=== PATIENT | male | born 1985 | race Caucasian/White ===

== ENCOUNTER → 2023-08-16 10:42 | Outpatient (BNVA) | payer BC, SELFPAY | PROVIDERS: Visit Provider Registered Nurse Neonatal Intensive Care | DX: R50.9 Fever, unspecified (principal) | CPT/HCPCS: 87400 ==

== ENCOUNTER 2023-08-17 20:11 | Inpatient (IN) | payer BC, SELFPAY ==
[2023-08-17 20:18] VITALS: BP 128/74; PULSE 105; RESP 16; TEMP 37.3; O2SAT 96; BMI 30.4
[2023-08-17] MEDS: sodium chloride 0.9% 1,000 ML 999 ML IV (20:59)
[2023-08-17] MEDS: ketorolac 30 mg/mL INJ 15 MG IVP (21:01)
[2023-08-17] MEDS: metoclopramide 5 mg/mL SDV 2 mL 10 MG IVP (21:03)
[2023-08-17] MEDS: diphenhydrAMINE 50 mg/mL SDV 1mL 25 MG IVP (21:06)
[2023-08-17 21:18] LABS: Basophils % 0.2 %; Hematocrit 37.7 % (37-53); Lymphocytes # 0.3 10^3/uL (0.8-4.8); Mean Corpuscular HGB Conc 36.1 g/dL (30-55); Mean Corpuscular Hemoglobin 30.2 pg (27-33); Mean Corpuscular Volume 83.8 fl (82-101); Mean Platelet Volume 9.6 fL (7.4-10.4); Monocytes % 7.7 %; Neutrophils # 11.12 10^3/uL (1.8-7.7); Neutrophils % 89.7 %; Nucleated Red Blood Cells % 0 %; Platelet Count 141 10^3/cmm (157-399); Red Cell Distribution Width 12.6 % (12.1-15.1)
--- NOTE | 2023-08-17 21:31 | W.ED.HA ---
HPI - Headache General: Chief Complaint: Headache Stated Complaint: n/v/d , headache, chills, fever Time Seen by Provider: 08/17/23 20:28 Source: patient Mode of arrival: ambulatory Limitations: no limitations History of Present Illness: 37yo male presents with family for evaluation of headache, chills, fever, nausea, vomiting, cough that has been ongoing for the past 4 days. Patient states his symptoms started with a headache and chills, then progressed to vomiting. Reports a Tmax of 102 tympanic and the fever is responsive to Tylenol. Patient reports that his vomiting typically occurs after coughing. He reports that his abdomen feels bloated, but is not having significant pain. Patient states no one at home has been sick. Reports that he has been to urgent care twice in the past 2 days. States initially they told him he had a viral upper respiratory infection with a cough when he tested negative for flu. States today they told him he had a migraine but did prescribe Augmentin. Patient states that he did take 1 tablet, but is not certain if it stay down. Patient also did take 2 activated charcoal tablets but does not technically stay down as well. Patient denies fall, trauma, known injury, known sick contacts, difficulty breathing, shortness of breath, chest pain. Patient does report a past medical history of migraines as a child. Associated symptoms: Reports fever(s) and vomiting; Deny chest pain or rash Review of Systems Const: Reports: fever(s), chills and body aches ENMT: Denies: throat pain Card: Denies: chest pain Resp: Reports: non-productive cough; Denies: dyspnea GI: Reports: vomiting; Denies: abdominal pain : Denies: flank pain or difficulty urinating Musc: Denies: back pain or extremity pain Skin/Breast: Denies: rash Neuro: Reports: headache(s) Physical Exam Const: COMMON NORMALS: no acute distress, patient oriented x3 and alert GENERAL APPEARANCE: cooperative ORIENTATION/CONSCIOUSNESS: Yes awake OTHER: Patient is ambulatory to the exam room unassisted. He is sitting reclined on the stretcher in no acute distress. He is able to make position changes unassisted. Family is at bedside HENMT: COMMON NORMALS: normocephalic and Normal external nose present HEAD & SCALP: normocephalic NOSE: Normal external nose present TYMPANIC MEMBRANE: TM normal on the left and unable to visualize TM (right, cerumen impaction) Eye: COMMON NORMALS: Equal, round and reactive pupils present, EOMs intact bilaterally and conjunctivae normal GENERAL EYE: appearance normal, both eyes and all related structures CONJUNCTIVA: Yes conjunctivae normal PUPIL: Yes Equal, round and reactive pupils present Neck/C-Spine: COMMON NORMALS: full ROM and no meningeal signs Chest: CHEST: Yes Symmetrical chest wall rise Resp: COMMON NORMALS: normal respiratory effort and clear to auscultation bilaterally EFFORT & INSPECTION: Yes able to speak in complete sentences AUSCULTATION: clear to auscultation bilaterally Cardio: COMMON NORMALS: regular rate and regular rhythm RATE: regular rate RHYTHM: regular rhythm GI: COMMON NORMALS: Normal to inspection, nondistended, normoactive bowel sounds present : COMMON NORMALS: Yes no CVA tenderness BLADDER/KIDNEY EXAM: Yes no CVA tenderness Back/Pelvis: COMMON NORMALS: no CVA tenderness Extremity: COMMON NORMALS: full ROM Neuro: COMMON NORMALS: patient oriented x3 SENSORIUM/ORIENTATION: Yes alert MENINGEAL SIGNS: Yes no meningeal signs COORDINATION/BALANCE: [id number] test normal SPEECH: speech normal GAIT: Yes Normal gait present COORDINATION: [id number] test normal Psych: COMMON NORMALS: mental status grossly normal Course Reevaluation(s): Reevaluation #1: Patient reports that he is feeling somewhat better. Discussed with patient and family members concern for ASHWINI given his kidney function, likely secondary to his vomiting. Discussed with patient and family that we would like to admit him to the hospital to ensure that his kidney function does return to normal. Patient and family are agreeable. Will proceed with contacting hospitalist for admission. Time: 22:10 Reevaluation #2: Discussed CT findings, chest x-ray, and UA with significant other. Patient is currently sleeping. Advised that we would proceed with admission. Time: 23:05 Consultations: Consultation #1: Dr Badillo, hospitalist. CT scan, chest x-ray, and UA are back. UA with 2+ bacteria and 25-40 white blood cells, will begin ceftriaxone. GC chlamydia, urine culture, UDS, and EtOH added. Patient is excepted for admission to the hospital. Time: 23:15 Vital Signs: Vital signs: Vital Signs Temperature 99.2 F 08/17/23 20:18 Pulse Rate 77 08/17/23 21:54 Respiratory Rate 16 08/17/23 20:18 Blood Pressure 117/72 08/17/23 22:07 Pulse Oximetry 94 08/17/23 22:07 Oxygen Delivery Me thod Room Air 08/17/23 22:07 MDM - Headache Medical Decision Making 37yo male here with family for evaluation of history of headache, chills, vomiting, fever, and cough. Patient has been seen twice at a local urgent care where he was initially diagnosed with a viral URI, then a migraine and prescribed Augmentin. Patient denies fall, trauma, known injury, known sick contacts, abdominal pain, decreased urine output. Patient is nontoxic in appearance. Vital signs are stable. Previous surgical history of appendectomy. Differential diagnoses include: Viral URI, sinusitis, meningitis, migraine, viral gastritis, bowel obstruction CBC with an elevated white blood cell count of 12.4. CMP with a sodium of 128, BUN of 34, creatinine of 3, GFR 23.5, total bili 1.5, AST 78, ALT 86, alkaline phosphatase 192. Concerning for ASHWINI. Influenza A/B and COVID-19 not detected. Discussed case with ER attending on-call, will call for admission for ASHWINI likely secondary to vomiting from viral illness. Discussed case with , hospitalist. Recommends proceeding with chest x-ray, CT scan, UA prior to admission. CT scan indicates bilateral perinephric changes possibly related to bilateral [place], but more likely related to acute renal failure. Also recommends right upper quadrant ultrasound of the liver. UA with 2+ bacteria, trace leukocytes, and 25-40 white blood cells. Chest x-ray unremarkable. Discussed these findings with Dr. Badillo, new labs added, and patient accepted for admission. Lab Data I reviewed the patient's lab results. 08/17/23 21:10 08/17/23 21:10 Radiology Impressions Abdomen/Pelvis CT 08/17/23 22:16 IMPRESSION: 1. Bilateral perinephric changes suggesting perinephric edema and trace fluid extending along the retroperitoneal reflection. While bilateral pyelonephritis can have this appearance, these findings are likely reported acute renal failure. 2. Nonspecific small pelvic free fluid, possibly related to renal failure. 3. Nonspecific heterogeneity of the hepatic parenchyma. Recommend further evaluation with right upper quadrant ultrasound. 4. Mild splenomegaly. Chest X-Ray 08/17/23 22:16 IMPRESSION: No acute findings. Laboratory Results WBC 12.40 10^3/uL (3.29-11.43) H 08/17/23 21:10 RBC 4.50 10^6/uL (3.85-5.65) 08/17/23 21:10 Hgb 13.60 g/dL (11.27-16.99) 08/17/23 21:10 Hct 37.7 % (37-53) 08/17/23 21:10 MCV 83.8 fl (82-101) 08/17/23 21:10 MCH 30.2 pg (27-33) 08/17/23 21:10 MCHC 36.1 g/dL (30-55) 08/17/23 21:10 RDW 12.6 % (12.1-15.1) 08/17/23 21:10 Plt Count 141 10^3/cmm (157-399) L 08/17/23 21:10 MPV 9.6 fL (7.4-10.4) 08/17/23 21:10 Neut % (Auto) 89.7 % 08/17/23 21:10 Lymph % (Auto) 2.0 % 08/17/23 21:10 [place] % (Auto) 7.7 % 08/17/23 21:10 Eos % (Auto) 0.0 % 08/17/23 21:10 Baso % (Auto) 0.2 % 08/17/23 21:10 Neut # (Auto) 11.12 10^3/uL (1.8-7.7) H 08/17/23 21:10 Lymph # (Auto) 0.3 10^3/uL (0.8-4.8) L 08/17/23 21:10 [place] # (Auto) 1.0 10^3/uL (0.2-0.9) H 08/17/23 21:10 Eos # (Auto) 0.0 10^3/uL (0.0-0.8) 08/17/23 21:10 Baso # (Auto) 0.0 10^3/uL (0.0-0.1) 08/17/23 21:10 Nucleated RBC % (auto) 0 % 08/17/23 21:10 Nucleated RBCs # 0.0 /100WBC 08/17/23 21:10 Sodium 128 mmol/L (136-145) L 08/17/23 21:10 Potassium 3.7 mmol/L (3.5-5.1) 08/17/23 21:10 Chloride 92 mmol/L (98-107) L 08/17/23 21:10 Carbon Dioxide 20 mmol/L (22-29) L 08/17/23 21:10 Anion Gap 19.7 (5-19) H 08/17/23 21:10 BUN 34 mg/dL (6-20) H 08/17/23 21:10 Creatinine 3.0 mg/dL (0.7-1.2) H 08/17/23 21:10 GFR Calculation 23.5 mL/min (90-130) L 08/17/23 21:10 Glucose 147 mg/dL (65-115) H 08/17/23 21:10 Calculated Osmolality 276 mOsm/kg (285-295) L 08/17/23 21:10 Calcium 8.6 mg/dL (8.5-10.5) 08/17/23 21:10 Total Bilirubin 1.5 mg/dL (0.15-1.2) H 08/17/23 21:10 AST 78 U/L (0-40) H 08/17/23 21:10 ALT 86 U/L (0-41) H 08/17/23 21:10 Alkaline Phosphatase 192 U/L (40-130) H 08/17/23 21:10 Total Protein 7.2 g/dL (6.6-8.7) 08/17/23 21:10 Albumin 3.6 g/dL (3.5-5.2) 08/17/23 21:10 Globulin 3.6 g/dL (1.3-4.6) 08/17/23 21:10 Lipase 21 U/L (13-60) 08/17/23 21:10 Urine Color Yellow (Yellow) 08/17/23 22:35 Urine Appearance Sl hazy (CLEAR) A 08/17/23 22:35 Urine pH 5 (5-7) 08/17/23 22:35 Ur Specific [place] 1.015 (1.005-1.030) 08/17/23 22:35 Urine Protein 1+ (Negative) H 08/17/23 22:35 Urine Glucose (UA) Norm (Normal) 08/17/23 22:35 Urine Ketones 1+ (Negative) H 08/17/23 22:35 Urine Blood 2+ (Negative) H 08/17/23 22:35 Urine Nitrate Negative (Negative) 08/17/23 22:35 Urine Bilirubin 1+ (Negative) H 08/17/23 22:35 Urine Urobilinogen 4 mg/dL (Negative) H 08/17/23 22:35 Ur Leukocyte Esterase Trace (Negative) H 08/17/23 22:35 Urine RBC 0-4 /hpf (0-2) H 08/17/23 22:35 Urine WBC 25-40 /hpf (0-5) H 08/17/23 22:35 Ur Squamous Epith Cells 0-4 /hpf (0-5) H 08/17/23 22:35 Amorphous Sediment Trace /hpf 08/17/23 22:35 Urine Bacteria 2+ /hpf (NONE) H 08/17/23 22:35 Hyaline Casts 0-4 /lpf H 08/17/23 22:35 Coarse Granular Casts 5-10 /lpf H 08/17/23 22:35 Influenza Type A Ag negative (Negative) 08/17/23 21:10 Influenza Type B Ag negative (Negative) 08/17/23 21:10 SARS-CoV-2 Ag (Rapid) negative (Negative) 08/17/23 21:10 All radiology interpretation(s) finalized by discharge Discharge Plan Discharge Condition: Stable Prescriptions: No Action amoxicillin-pot clavulanate 875-125 mg tablet 1 tab PO BID 7 Days Qty: 14 0RF Referrals: Brett Whiting [Primary Care Provider] - Coding Level of Care Code ED Rug Sample Beveler for Chg Nickolas
[2023-08-17 21:35] LABS: Alanine Aminotransferase 86 U/L (0-41); Albumin Level 3.6 g/dL (3.5-5.2); Alkaline Phosphatase 192 U/L (40-130); Anion Gap 19.7 (5-19); Aspartate Amino Transferase 78 U/L (0-40); Blood Urea Nitrogen 34 mg/dL (6-20); Calcium 8.6 mg/dL (8.5-10.5); Carbon Dioxide 20 mmol/L (22-29); Chloride 92 mmol/L (98-107); Globulin 3.6 g/dL (1.3-4.6); Glomerular Filtration Rate 23.5 mL/min (90-130); Glucose 147 mg/dL (65-115); Lipase 21 U/L (13-60); Osmolality Calculated 276 mOsm/kg (285-295); Potassium 3.7 mmol/L (3.5-5.1); Sodium 128 mmol/L (136-145); Total Bilirubin 1.5 mg/dL (0.15-1.2); Total Protein 7.2 g/dL (6.6-8.7)
[2023-08-17 21:37] LABS: Influenza A by IFA negative (Negative); Influenza B by IFA negative (Negative); SARS Covid-2 Antigen negative (Negative)
[2023-08-17 21:54] VITALS: BP 123/75; PULSE 77; O2SAT 95
--- NOTE | 2023-08-17 21:59 | PC.NURSE ---
Assumed care of patient from previous nurse Mayra RN @ [id number]. Pt awake in room at this time. Pain has reduced from ivp medications given earlier.
[2023-08-17 22:07] VITALS: BP 117/72; O2SAT 94
--- NOTE | 2023-08-17 22:16 | XRR_ITS ---
PROCEDURE INFORMATION: Exam: XR Chest Exam date and time: 08/17/2023 10:21 PM Age: 37 years old Clinical indication: Cough and fever; Additional info: Cough, fever TECHNIQUE: Imaging protocol: Radiologic exam of the chest. Views: 1 view. COMPARISON: CT Abdomen/[place]vis w IV* [id number] 08/12/2018 1:10 AM FINDINGS: Lungs: Unremarkable. No consolidation. Incidental note is made of a calcified granuloma in the right lateral upper lung zone. Pleural spaces: Unremarkable. No pleural effusion. No pneumothorax. Heart/Mediastinum: Unremarkable. No cardiomegaly. Bones/joints: Unremarkable. XR/XR chest 1V portable [id number] IMPRESSION: No acute findings.
--- NOTE | 2023-08-17 22:16 | CTR_ITS ---
PROCEDURE INFORMATION: Exam: CT Abdomen And Pelvis Without Contrast Exam date and time: 08/17/2023 10:23 PM Age: 37 years old Clinical indication: Vomiting; Prior surgery; Surgery date: 6+ months; Surgery type: Appy 6 years ago; Additional info: Daniel, vomiting TECHNIQUE: Imaging protocol: Computed tomography of the abdomen and pelvis without contrast. Radiation optimization: All CT scans at this facility use at least one of these dose optimization techniques: automated exposure control; mA and/or kV adjustment per patient size (includes targeted exams where dose is matched to clinical indication); or iterative reconstruction. COMPARISON: CT Abdomen/Pelvis w IV* [id number] 08/12/2018 1:10 AM RADIATION DOSE METRICS: Total DLP (mGy-cm): 1026.07 FINDINGS: Lungs: There are mild dependent changes in the posterior lower lobes. Liver: The liver appears heterogeneous in attenuation. While no definitive masses are seen, subtle mass are difficult to exclude in the absence of intravenous contrast. Gallbladder and bile ducts: The gallbladder is contracted. Pancreas: The pancreas is normal. Spleen: The spleen is mildly enlarged measuring up to 13.5 cm. No splenic masses are identified on noncontrast imaging. Adrenal glands: The adrenal glands are normal. Kidneys and ureters: There is hazy increased density in the bilateral perinephric regions which extends inferiorly in the retroperitoneum. No renal calcification or hydronephrosis is seen. There is trace fluid tracking along the retroperitoneal reflections. Stomach and bowel: Unremarkable. No obstruction. No mucosal thickening. Appendix: Postoperative changes are noted in the expected location of the appendix. Intraperitoneal space: There is trace pelvic free fluid. There is trace fluid in the paracolic gutters. No fluid collections are identified. No definitive inflammatory changes are seen. There is no pneumoperitoneum. Retroperitoneal space: Hazy increased density adjacent to the inferior vena cava is likely related to retroperitoneal edema. Vasculature: The aorta is unremarkable. Lymph nodes: Unremarkable. No enlarged lymph nodes. Urinary bladder: Unremarkable as visualized. Reproductive: Unremarkable as visualized. Bones/joints: Unremarkable. No acute fracture. Soft tissues: Unremarkable. CT/CT abdomen pelvis wo con [id number] IMPRESSION: 1. Bilateral perinephric changes suggesting perinephric edema and trace fluid extending along the retroperitoneal reflection. While bilateral pyelonephritis can have this appearance, these findings are likely reported acute renal failure. 2. Nonspecific small pelvic free fluid, possibly related to renal failure. 3. Nonspecific heterogeneity of the hepatic parenchyma. Recommend further evaluation with right upper quadrant ultrasound. 4. Mild splenomegaly.
[2023-08-17 22:58] LABS: Add Urine Microscopic? YES; Bilirubin Urine 1+ (Negative); Blood Urine 2+ (Negative); Glucose Urine UA Norm (Normal); Ketones Urine 1+ (Negative); Leukocyte Esterase Urine Trace (Negative); Nitrate Urine Negative (Negative); Protein Urine 1+ (Negative); Specific Gravity, Urine 1.015 (1.005-1.030); Urine Appearance SL Hazy (CLEAR); Urine Color Yellow (Yellow); Urobilinogen Urine 4 mg/dL (Negative); pH Urine 5 (5-7)
[2023-08-17 22:59] LABS: Bacteria Urine 2+ /hpf; RBC Urine 0-4 /hpf (0-2); Squamous Epithelial Cell Urine 0-4 /hpf (0-5); WBC Urine 25-40 /hpf (0-5)
[2023-08-17 23:00] LABS: Amorphous Sediment Urine TRACE /hpf
[2023-08-17 23:01] LABS: Add Urine Culture? Yes; Hyaline Casts Urine 0-4 /lpf
[2023-08-17 23:20] VITALS: BP 136/89; PULSE 71; O2SAT 94
--- NOTE | 2023-08-17 23:24 | P.HP_ITS ---
Providers/Chief Complaint 2 Primary Care Provider: Brett Whiting Chief Complaint: n/v/d , headache, chills, fever History of Present Illness Tevin Hedrick is a 37 year old male Without known medical comorbidities except for a remote history of migraine type headache as a child. He is currently presenting with complaints of fever chills body ache, diarrhea and sore throat since (today is Thursday). Reports being in his usual state of health until . He then started to develop body ache which was generalized. No predilection for any particular joint. Thereafter he developed nausea vomiting with multiple episodes of emesis a day. Unable to tolerate any p.o. intake. Also had diarrhea with multiple stools a day. States that diarrhea appears to be better when he does not consume any food. Around the same time he also developed a sore throat, minimal cough. No expectoration. His symptoms have continued to persist through today. States that he had a Tmax of 102 Fahrenheit earlier today. He anticipates he has multiple spikes a day but has been taking Tylenol which appears to improve his symptoms. In ER Tmax is noted to be 99.2 Fahrenheit. No other sick contacts at home. Patient is a 4-year-old daughter at home, child has not been sick. No history of strep throat with child. He has both cats and dogs including kittens at home as pets, no history of animal bites or scratches. No noted lymphadenopathy No rashes No joint pain swelling or tenderness He has also been complaining of headache since the onset of his symptoms, much worse than the migraines that he used to suffer before. Denies any photophobia. Denies any neck pain or stiffness. Currently able to have a full range of motion of the neck without issues. Review of Systems 2 General: Reports: 10 or more systems reviewed and unremarkable except in HPI and below Const: Denies: fever(s), chills or body aches Eyes: Denies: change in vision, blurry vision or photophobia ENMT: Reports: hoarseness; Denies: throat pain, enlarged tonsils, odynophagia or nasal congestion Card: Denies: chest pain, palpitations, irregular heart rhythm, edema, swelling of feet/ankles, lightheadedness, pre-syncope, dyspnea on exertion or orthopnea Resp: Denies: dyspnea, productive cough, non-productive cough, wheezing, stridor, pain on inspiration, change in phlegm color, hemoptysis or chest congestion GI: Denies: abdominal pain, nausea, vomiting, hematemesis, coffee ground emesis, dysphagia, heartburn, diarrhea, constipation, GI cramping, change in stool character, hematochezia or melena : Denies: flank pain, dysuria, urinary frequency, urinary urgency, urinary hesitancy or hematuria Musc: Denies: neck pain, back pain, extremity pain, joint swelling, joint warmth or deformity Neuro: Denies: headache(s), numbness in extremities, weakness in extremities, sensory changes, difficulty walking, frequent falls, dizziness, vertigo, behavioral changes, Slurred speech present or seizure-like activity Psych: Denies: anxiety, depression, suicidal ideation or homicidal ideation Endo: Denies: polyuria, polydipsia, tired all the time, cold intolerance or hot flashes [place]/Lymph: Denies: easy bruising or easy bleeding Medications/Allergies Home Medications Medication Instructions Recorded Confirmed Last Taken Type amoxicillin 875 mg-potassium 1 tab PO BID 7 days #14 tabs 08/17/23 08/17/23 Unknown Rx clavulanate 125 mg tablet Allergies Allergy/AdvReac Type Severity Reaction Status Date / Time No Known Allergies Allergy Verified 08/17/23 20:18 Vitals/I&O/Wt Last Vital Signs Temp 99.2 F 08/17/23 20:18 Pulse 71 08/17/23 23:20 Resp 16 08/17/23 20:18 BP 136/89 08/17/23 23:20 Pulse Ox 94 08/17/23 23:20 O2 Del Method Room Air 08/17/23 23:20 08/17/23 08/17/23 08/18/23 14:59 22:59 06:59 Intake Total 1000 / 1000 Balance 1000 / 1000 Weight last 48 hrs Weight 110.677 kg Physical Exam 2 Narrative: General: No acute distress, AO x3 HEENT: PERRLA, pupils bilaterally equal and reactive, pallors not present Chest: Normal vesicular breath sounds, no added sounds, equal good air entry bilaterally CVS: S1-S2 regular, no murmurs, no tachycardia, no gallops, no rubs Abdomen: Soft, nontender, no organomegaly, bowel sounds present Neuro: No focal deficits, no facial deformity, AO x3, power 5/5 in all limbs Data 08/17/23 21:10 08/17/23 21:10 A&P Assessment and plan (1) Fever: Fever source currently under evaluation. Possibilities include acute viral illness, check respiratory viral panel, negative flu and COVID antigens in the emergency room. Check UA, urine culture, urine GC chlamydia, blood culture, chest x-ray and CT of the abdomen and pelvis Given acute kidney injury to assess for any obstructive calculi, given transaminitis to assess for any biliary tree obstruction, given persistent diarrhea evaluate for colitis. Check stool C. difficile PCR, enteric bacterial parasite panel Empiric ceftriaxone 1 g IV every 24 hours to be started after collection of blood cultures while undergoing fever source evaluation. CMV and EBV serologies requested Qualifiers: Fever type: unspecified Qualified Code(s): R50.9 - Fever, unspecified (2) Acute kidney injury: Likely related to dehydration from GI losses. Start normal saline at 100 cc an hour Maintain strict input output charting. Trend creatinine with a.m. labs Check CK to assess for rhabdomyolysis CT abdomen as noted above He received Toradol earlier today and at PCPs office 2 days ago. Avoid any further doses of NSAIDs or other nephrotoxic medications As needed morphine for pain control. (3) Transaminitis: May be related to dehydration IV hydration as noted above CT of the abdomen and pelvis to assess for any biliary tree obstruction. Check hepatitis panel (4) Dehydration: From GI losses related to vomiting and diarrhea Normal saline at 100 cc an hour (5) Hyponatremia: Likely secondary to dehydration, reassess with a.m. labs Plan DVT prophylaxis: Heparin 5000 subcutaneous every 12 hours Full code Attestations 2 Medical Necessity Statement*: Greater than 2 midnight stay is anticipated Coding Level of Care Code Acute Code for Chg Fwd Moderate MDM includes number and complexity of problems actively addressed during encounter, amount and/or complexity of data reviewed/ordered and described risk of complication, morbidity or mortality of management as documented Diagnoses Fever, unspecified fever cause R50.9 Fever type: unspecified Acute kidney injury N17.9 Transaminitis R74.01 Dehydration E86.0 Hyponatremia E87.1
[2023-08-17] MEDS: cefTRIAXone 1,000 MG in sodium chloride 0.9% (plus) 50 ML 100 MG IV (23:36)
[2023-08-17] MEDS: sodium chloride 0.9% 1,000 ML 100 ML IV (23:39)
[2023-08-17 23:42] VITALS: BP 137/92; PULSE 68; RESP 14; TEMP 36.7; O2SAT 95
[2023-08-17 23:50] LABS: Alcohol Level < 10 mg/dL (0-10)
[2023-08-17 23:58] LABS: Amphetamines Screen Urine Negative (Negative); Barbiturates Screen Urine Negative (Negative); Benzodiazepines Screen Urine Negative (Negative); Cocaine Screen Urine Negative (Negative); Opiate Screen Urine Negative (Negative); PCP Screen Urine Negative (Negative); THC Screen Urine Negative (Negative)
[2023-08-18] VITALS (9 sets, daily range): BP systolic 113–123; BP diastolic 66–83; PULSE 61–71; RESP 14–18; TEMP 36.4–36.9; O2SAT 93–97; BMI 30.9
[2023-08-18 00:52] LABS: Glucose Point of Care 136 mg/dL (70-110)
[2023-08-18] MEDS: morphine 4 mg/mL SDV 1 mL 2 MG IVP ×2 (01:17→10:33)
[2023-08-18 04:32] LABS: Adenovirus Not Detected (NOT DETECT); Chlamydia Pneumoniae Not Detected (NOT DETECT); Coronavirus 229E,HKU1,NL63,OC4 Not Detected (NOT DETECT); Human Metapneumovirus Not Detected (NOT DETECT); Human Rhinovirus/Enterovirus Not Detected (NOT DETECT); Influenza A Not Detected (NOT DETECT); Influenza A H1 Not Detected (NOT DETECT); Influenza A H1-2009 Not Detected (NOT DETECT); Influenza A H3 Not Detected (NOT DETECT); Influenza B Not Detected (NOT DETECT); Mycoplasma Pneumoniae Not Detected (NOT DETECT); Parainfluenza Virus Type 1 Not Detected (NOT DETECT); Parainfluenza Virus Type 2 Not Detected (NOT DETECT); Parainfluenza Virus Type 3 Not Detected (NOT DETECT); Parainfluenza Virus Type 4 Not Detected (NOT DETECT); Respiratory Syncytial Virus A Not Detected (NOT DETECT); Respiratory Syncytial Virus B Not Detected (NOT DETECT); SARS-COV-2 Not Detected (NOT DETECT)
[2023-08-18 05:40] LABS: Basophils % 0.1 %; Hematocrit 38.1 % (37-53); Lymphocytes # 0.6 10^3/uL (0.8-4.8); Lymphocytes % 5.8 %; Mean Corpuscular HGB Conc 34.4 g/dL (30-55); Mean Corpuscular Hemoglobin 29.6 pg (27-33); Mean Corpuscular Volume 86.2 fl (82-101); Mean Platelet Volume 9.7 fL (7.4-10.4); Monocytes # 0.6 10^3/uL (0.2-0.9); Monocytes % 5.8 %; Neutrophils # 9.26 10^3/uL (1.8-7.7); Neutrophils % 87.6 %; Nucleated Red Blood Cells % 0 %; Platelet Count 140 10^3/cmm (157-399); Red Blood Count 4.42 10^6/uL (3.85-5.65); Red Cell Distribution Width 12.6 % (12.1-15.1); White Blood Count 10.56 10^3/uL (3.29-11.43)
[2023-08-18 05:49] LABS: Monoscreen Negative (Negative)
[2023-08-18 06:02] LABS: Alanine Aminotransferase 73 U/L (0-41); Albumin Level 3.3 g/dL (3.5-5.2); Alkaline Phosphatase 172 U/L (40-130); Anion Gap 17.2 (5-19); Aspartate Amino Transferase 50 U/L (0-40); Blood Urea Nitrogen 37 mg/dL (6-20); Carbon Dioxide 23 mmol/L (22-29); Chloride 97 mmol/L (98-107); Globulin 3.4 g/dL (1.3-4.6); Glucose 143 mg/dL (65-115); Osmolality Calculated 287 mOsm/kg (285-295); Potassium 4.2 mmol/L (3.5-5.1); Sodium 133 mmol/L (136-145); Total Bilirubin 0.7 mg/dL (0.15-1.2); Total Protein 6.7 g/dL (6.6-8.7)
[2023-08-18 06:11] LABS: Creatine Phosphokinase 100 U/L (39-308)
[2023-08-18 06:25] LABS: Hepatitis A Antibody IgM Non-Reactive (Nonreactive); Hepatitis B Core AB, Total Non-Reactive (Nonreactive); Hepatitis B Surface AB 7.5 (11.5-1000); Hepatitis B Surface Antigen Non-Reactive (Nonreactive); Hepatitis C Virus Antibody Non-Reactive (Nonreactive)
[2023-08-18] MEDS: pantoprazole DR 40 mg Tablet PO (07:58)
[2023-08-18] MEDS: sodium chloride 0.9% 1,000 ML 100 ML IV ×2 (11:23→20:56)
[2023-08-18] MEDS: SUMAtriptan 6 mg/0.5 mL SDV SUBCUT (13:42)
--- NOTE | 2023-08-18 16:16 | P.PN_ITS ---
Subjective 2 Subjective: Earlier in the day, patient complained of headache unresolved w/ morphine. Given his endorsement of hx of migraines, he was given a dose of sumatriptan x 1 w/ resolution of his sympoms. When seen today, the patient stated that he has episodes where he has felt clammy today, but he denies f/c, abd pain, n/v, CP, palpitations, dizziness, light headedness. Vitals/I&O/Wt Last Vital Signs Temp 97.6 F 08/18/23 12:00 Pulse 61 08/18/23 12:00 Resp 16 08/18/23 12:00 BP 114/66 08/18/23 12:00 Pulse Ox 96 08/18/23 12:00 O2 Del Method Room Air 08/18/23 00:21 08/18/23 08/18/23 08/18/23 06:59 14:59 22:59 Intake Total 50 / 1050 1840 / 1840 Balance 50 / 1050 1840 / 1840 Weight last 48 hrs Weight 112.037 kg Weight 112.037 kg Weight 110.677 kg Physical Exam 2 Const: GENERAL APPEARANCE: cooperative, comfortable and well kempt O RIENTATION/CONSCIOUSNESS: Yes awake, Yes oriented to person, Yes oriented to place and Yes oriented to time HENMT: COMMON NORMALS: normocephalic, atraumatic, external ears normal and Normal external nose present HEAD & SCALP: normocephalic and atraumatic N OSE: Normal external nose present EXTERNAL EAR: Yes external ears normal M OUTH: Normal oral and palatal mucosa present THROAT: posterior oropharynx normal Eye: COMMON NORMALS: Equal, round and reactive pupils present PUPIL: Yes Equal, round and reactive pupils present EOM: No EOM abnormal Neck/C-Spine: COMMON NORMALS: Thyroid normal GENERAL: Yes normal visual inspection and Yes trachea midline THYROID: Thyroid normal CAROTIDS: No bruit Lymph: LYMPHATIC: no lymphadenopathy noted Resp: OTHER: CTAB w/ no w/r/r Cardio: OTHER: RRR, no m/r/g/clicks GI: OTHER: BS+, non distended, no rebound, rigidity, or organomegaly Extremity: GENERAL: No clubbing, No cyanosis and No edema Neuro: SENSORIUM/ORIENTATION: Yes oriented to person, Yes oriented to place and Yes oriented to time CRANIAL NERVES: Yes CN normal except as noted S PEECH: speech normal SENSORY EXAM: No sensory level loss detected MOTOR EXAM: 5/5 motor strength present throughout Psych: COMMON NORMALS: Normal thought process present and speech normal A PPEARANCE: Yes grossly normal and Yes well kempt ATTITUDE: Yes calm and Yes engaged ACTIVITY/MOTOR BEHAVIOR: Yes appropriate eye contact SPEECH: Yes normal speech MOOD & AFFECT: Yes euthymic mood THOUGHT PROCESS: Normal thought process present THOUGHT CONTENT: Yes Normal thought content present ATTENTION/CONCENTRATION: Yes attention grossly intact MEMORY/COGNITION: Yes memory grossly intact Skin: COMMON NORMALS: no rashes or lesions noted GENERAL SKIN EXAM: no rashes or lesions noted Data 08/18/23 05:25 08/18/23 05:25 Micro: Microbiology 08/17/23 23:36 Blood Culture - Preliminary Blood SPECIMEN COLLECTED 08/17/23 23:31 Blood Culture - Preliminary Blood SPECIMEN COLLECTED A&P Assessment and plan (1) Acute kidney injury: (2) Hyponatremia: (3) Sepsis: Qualifiers: Acute renal failure type: with acute tubular necrosis Sepsis acute organ dysfunction status: with acute organ dysfunction Sepsis type: sepsis due to unspecified organism Severe sepsis acute organ dysfunction type: acute renal failure Severe sepsis shock status: without septic shock Qualified Code(s): A 41.9 - Sepsis, unspecified organism; R65.20 - Severe sepsis without septic shock; N17.0 - Acute kidney failure with tubular necrosis (4) Transaminitis: (5) Dehydration: Plan #Severe Sepsis: Due to UTI and possible Acute b/l pyelonephritis #Complicated UTI w/ #possible Acute b/l pyelonephritis. - F/u BCx. F/u UCx. Continue Ceftriaxone. #ASHWINI with Acute Tubular necrosis (ATN): #Dehydration #Hypovolemic Hyponatremia - Continue IVF. Monitor Na+ levels. - Monitor renal function. Strict Is &Os. #Transaminitis: - possibly due to dehydration. - F/u RUQ as recommended by Radiologist. - Monitor LFTs. #Fever: F/u CMV serology. F/u chlamydia/gonorrhea studies. Respiratory viral panel studies including COVID-19 studies and Acute hepatitis panel is negative. EBV screen is negative. #Headache, Hx of Migraine type headache as a child. - S/p Sumatriptan subq x 1 on 08/18 w/ resolution of symptoms DVT ppx: heparin subq. Attestations 2 Medical Necessity Statement*: Pending BCx, UCx, ATN improvement and transaminitis improvement Coding Level of Care Code 25790 Diagnoses Acute kidney injury N17.9 Hyponatremia E87.1 Sepsis with acute renal failure and tubular necrosis without septic shock, due to unspecified organism A41.9; R65.20; N17.0 Acute renal failure type: with acute tubular necrosis Sepsis acute organ dysfunction status: with acute organ dysfunction Sepsis type: sepsis due to unspecified organism Severe sepsis acute organ dysfunction type: acute renal failure Severe sepsis shock status: without septic shock Transaminitis R74.01 Dehydration E86.0
--- NOTE | 2023-08-18 16:20 | US_ITS ---
WS: [id number] RIGHT UPPER QUADRANT ULTRASOUND HISTORY: Transaminitis. Recommended by Radiologist. COMPARISON: CT 08/17/2023 Liver: 15.8 cm in length. Liver is top normal size. Coarse echotexture throughout. No mass identified . No bile duct dilatation. Portal Vein: Normal hepatopetal flow with monophasic waveform. Gallbladder: Normally distended gallbladder with no stones or wall thickening. CBD: 0.5 cm Pancreas: Poorly visualized pancreas due to body habitus. Right kidney: 12.8 cm in length. Normal size and echogenicity. No hydronephrosis or mass. Aorta and IVC: Unremarkable abdominal aorta and IVC. No ascites. IMPRESSION: 1. Normal gallbladder. 2. Technically difficult evaluation RIGHT upper quadrant. 3. Mild hepatic steatosis. No mass or bile duct dilatation.
[2023-08-18] MEDS: cefTRIAXone 2,000 MG in sodium chloride 0.9% (plus) 50 ML 100 MG IV (23:31)
[2023-08-19] VITALS (7 sets, daily range): BP systolic 102–137; BP diastolic 58–83; PULSE 54–63; RESP 16–18; TEMP 35.9–36.8; O2SAT 95–97
[2023-08-19] MEDS: sodium chloride 0.9% 1,000 ML 100 ML IV ×2 (06:00→17:01)
[2023-08-19] MEDS: morphine 4 mg/mL SDV 1 mL 2 MG IVP (06:31)
[2023-08-19] MEDS: pantoprazole DR 40 mg Tablet PO (08:00)
[2023-08-19] MEDS: SUMAtriptan 6 mg/0.5 mL SDV SUBCUT (10:27)
--- NOTE | 2023-08-19 11:16 | P.PN_ITS ---
Subjective 2 Subjective: Earlier in the day, patient complained of bifrontal/and parietal headache that comes in waves. Associated w/ some light and sound sensitivity. He denies any nausea, or emesis. He states that the light and sound sensitivity that he felt today is much less compared to prior to admission. He also states that prior to admission, he also felt like he had visual disturbances with his headaches. He denies any sensation of nausea, or emesis. He was given a dose of sumatriptan this morning, with resolution of his headache. He continues to deny any fever or chills, dizziness lightheadedness, abdominal pain, CP, palpitations, dysuria, hematuria, increased urinary urgency or frequency. Medications: Reviewed: Yes Vitals/I&O/Wt Last Vital Signs Temp 97.6 F 08/19/23 10:55 Pulse 56 L 08/19/23 10:55 Resp 16 08/19/23 10:55 BP 133/83 08/19/23 10:55 Pulse Ox 97 08/19/23 10:55 O2 Del Method Room Air 08/19/23 10:55 08/18/23 08/19/23 08/19/23 22:59 06:59 14:59 Intake Total 1195 / 3035 956.667 / 3991.667 480 / 480 Balance 1195 / 3035 956.667 / 3991.667 480 / 480 Weight last 48 hrs Weight 111.947 kg Weight 112.037 kg Weight 112.037 kg Weight 110.677 kg Physical Exam 2 Const: GENERAL APPEARANCE: cooperative, comfortable and well kempt O RIENTATION/CONSCIOUSNESS: Yes awake, Yes oriented to person, Yes oriented to place and Yes oriented to time HENMT: COMMON NORMALS: normocephalic, atraumatic, external ears normal and Normal external nose present HEAD & SCALP: normocephalic and atraumatic N OSE: Normal external nose present EXTERNAL EAR: Yes external ears normal M OUTH: Normal oral and palatal mucosa present THROAT: posterior oropharynx normal Eye: COMMON NORMALS: Equal, round and reactive pupils present PUPIL: Yes Equal, round and reactive pupils present EOM: No EOM abnormal Neck/C-Spine: COMMON NORMALS: Thyroid normal GENERAL: Yes normal visual inspection and Yes trachea midline THYROID: Thyroid normal CAROTIDS: No bruit Lymph: LYMPHATIC: no lymphadenopathy noted Resp: OTHER: CTAB w/ no w/r/r Cardio: OTHER: RRR, no m/r/g/clicks GI: OTHER: BS+, non distended, no rebound, rigidity, or organomegaly Extremity: GENERAL: No clubbing, No cyanosis and No edema Neuro: SENSORIUM/ORIENTATION: Yes oriented to person, Yes oriented to place and Yes oriented to time CRANIAL NERVES: Yes CN normal except as noted S PEECH: speech normal SENSORY EXAM: No sensory level loss detected MOTOR EXAM: 5/5 motor strength present throughout Psych: COMMON NORMALS: Normal thought process present and speech normal A PPEARANCE: Yes grossly normal and Yes well kempt ATTITUDE: Yes calm and Yes engaged ACTIVITY/MOTOR BEHAVIOR: Yes appropriate eye contact SPEECH: Yes normal speech MOOD & AFFECT: Yes euthymic mood THOUGHT PROCESS: Normal thought process present THOUGHT CONTENT: Yes Normal thought content present ATTENTION/CONCENTRATION: Yes attention grossly intact MEMORY/COGNITION: Yes memory grossly intact Skin: COMMON NORMALS: no rashes or lesions noted GENERAL SKIN EXAM: no rashes or lesions noted Data 08/18/23 05:25 08/18/23 05:25 Micro: Microbiology 08/17/23 23:36 Blood Culture - Preliminary Blood NEGATIVE TO DATE 08/17/23 23:31 Blood Culture - Preliminary Blood NEGATIVE TO DATE A&P Assessment and plan (1) Acute kidney injury: (2) Hyponatremia: (3) Sepsis: Qualifiers: Sepsis type: sepsis due to unspecified organism Sepsis acute organ dysfunction status: with acute organ dysfunction Severe sepsis acute organ dysfunction type: acute renal failure Acute renal failure type: with acute tubular necrosis Severe sepsis shock status: without septic shock Qualified Code(s): A41.9 - Sepsis, unspecified organism; R65.20 - Severe sepsis without septic shock; N17.0 - Acute kidney failure with tubular necrosis (4) Transaminitis: (5) Dehydration: Plan Mr. Hedrick is a 37yo man w/ no medical condition except a remote history of a migraine type headache as a child, who presented to the ED on 08/17/2023 with fever chills, myalgias, diarrhea, sore throat, and multiple episodes of emesis daily since 08/13/2023. In the ED, his Tmax was 99.2 F, but he was tachycardic to 105bpm. He had a wbc of 12.4, as well as Hyponatremia of 128, a Cr of 3.0 (baseline 1.0 on 08/12/2018), and transaminitis. His UA was concerning for UTI. His CXR showed no acute abnormalities. A CT abd/pelvis w/o contrast was done that was concerning for bilateral acute pyelonephritis. There was nonspecific heterogeneity of the hepatic parenchyma, so a RUQ US was recommended. On admission, he was started on Ceftriaxone. The RUQ was done and it showed mild hepatic steatosis. #Severe Sepsis: Due to UTI and Acute b/l pyelonephritis #Complicated UTI w/ #possible Acute b/l pyelonephritis. - F/u BCx. F/u UCx. Continue Ceftriaxone. #ASHWINI with Acute Tubular necrosis (ATN): #Dehydration #Hypovolemic Hyponatremia - Continue IVF. Monitor Na+ levels. - Monitor renal function. Strict Is &Os. #Transaminitis: - possibly due to dehydration. - Monitor LFTs. #Mild Hepatic steatosis - F/u lipid panel #Fever: F/u CMV serology. F/u chlamydia/gonorrhea studies. Respiratory viral panel studies including COVID-19 studies and Acute hepatitis panel is negative. EBV screen is negative. #Headache w/ Possible Migraine, Hx of Migraine type headache as a child. - S/p Sumatriptan sub daily x 2 days. Switch to po sumatriptan prn. DVT ppx: heparin subq. Attestations 2 Medical Necessity Statement*: He remains hospitalized because UCx, BCx are still pending. Coding Level of Care Code 95756 Diagnoses Acute kidney injury N17.9 Hyponatremia E87.1 Sepsis with acute renal failure and tubular necrosis without septic shock, due to unspecified organism A41.9; R65.20; N17.0 Sepsis type: sepsis due to unspecified organism Sepsis acute organ dysfunction status: with acute organ dysfunction Severe sepsis acute organ dysfunction type: acute renal failure Acute renal failure type: with acute tubular necrosis Severe sepsis shock status: without septic shock Transaminitis R74.01 Dehydration E86.0
[2023-08-19 11:30] LABS: EBV IGM TEST <36.00 U/mL
[2023-08-19 12:30] LABS: Cytomegalovirus Antibody (IGG) <0.60 U/mL; Cytomegalovirus Antibody (IGM) <30.00 AU/mL
[2023-08-19 12:30] LABS: Basophils % 0.2 %; Eosinophils % 0.5 %; Hematocrit 38.1 % (37-53); Lymphocytes # 1.3 10^3/uL (0.8-4.8); Lymphocytes % 20.8 %; Mean Corpuscular HGB Conc 34.6 g/dL (30-55); Mean Corpuscular Hemoglobin 29.5 pg (27-33); Mean Platelet Volume 9.8 fL (7.4-10.4); Monocytes # 0.5 10^3/uL (0.2-0.9); Neutrophils # 4.42 10^3/uL (1.8-7.7); Neutrophils % 69.4 %; Nucleated Red Blood Cells % 0 %; Platelet Count 209 10^3/cmm (157-399); Red Blood Count 4.48 10^6/uL (3.85-5.65); White Blood Count 6.36 10^3/uL (3.29-11.43)
[2023-08-19 12:49] LABS: Alanine Aminotransferase 88 U/L (0-41); Albumin Level 3.3 g/dL (3.5-5.2); Alkaline Phosphatase 142 U/L (40-130); Anion Gap 11.5 (5-19); Aspartate Amino Transferase 59 U/L (0-40); Blood Urea Nitrogen 29 mg/dL (6-20); Calcium 8.2 mg/dL (8.5-10.5); Carbon Dioxide 24 mmol/L (22-29); Chloride 106 mmol/L (98-107); Globulin 2.8 g/dL (1.3-4.6); Glomerular Filtration Rate 61.8 mL/min (90-130); Glucose 109 mg/dL (65-115); Osmolality Calculated 292 mOsm/kg (285-295); Potassium 3.5 mmol/L (3.5-5.1); Sodium 138 mmol/L (136-145); Total Bilirubin 0.4 mg/dL (0.15-1.2); Total Protein 6.1 g/dL (6.6-8.7)
[2023-08-19 18:04] LABS: Chlamydia Trachomatis RNA TMA NOT DETECTED (NOT DETECTED); Neisseria Gonorrhoeae RNA, TMA NOT DETECTED (NOT DETECTED)
[2023-08-19] MEDS: SUMAtriptan 25 mg Tablet PO (18:19)
[2023-08-19] MEDS: cefTRIAXone 2,000 MG in sodium chloride 0.9% (plus) 50 ML 100 MG IV (23:43)
[2023-08-20] VITALS: BP 134/78; PULSE 60; RESP 18; TEMP 36.4; O2SAT 95
[2023-08-20] MEDS: sodium chloride 0.9% 1,000 ML 100 ML IV (01:53)
[2023-08-20 04:00] VITALS: BP 115/73; PULSE 61; RESP 17; TEMP 36.4; O2SAT 97
[2023-08-20 05:55] LABS: Basophils % 0.8 %; Hematocrit 38.7 % (37-53); Lymphocytes # 1.5 10^3/uL (0.8-4.8); Lymphocytes % 38.6 %; Mean Corpuscular HGB Conc 33.6 g/dL (30-55); Mean Corpuscular Hemoglobin 29.2 pg (27-33); Mean Platelet Volume 9.1 fL (7.4-10.4); Monocytes # 0.5 10^3/uL (0.2-0.9); Monocytes % 11.4 %; Neutrophils # 1.81 10^3/uL (1.8-7.7); Neutrophils % 45.9 %; Nucleated Red Blood Cells % 0 %; Platelet Count 226 10^3/cmm (157-399); Red Blood Count 4.45 10^6/uL (3.85-5.65); White Blood Count 3.94 10^3/uL (3.29-11.43)
[2023-08-20 06:00] VITALS: BMI 30.7
[2023-08-20 06:14] LABS: Alanine Aminotransferase 106 U/L (0-41); Albumin Level 3.1 g/dL (3.5-5.2); Alkaline Phosphatase 109 U/L (40-130); Anion Gap 14.3 (5-19); Blood Urea Nitrogen 21 mg/dL (6-20); Calcium 8.4 mg/dL (8.5-10.5); Carbon Dioxide 25 mmol/L (22-29); Chloride 106 mmol/L (98-107); Globulin 2.9 g/dL (1.3-4.6); Glomerular Filtration Rate 67.8 mL/min (90-130); Glucose 98 mg/dL (65-115); Magnesium 1.7 mg/dL (1.7-2.3); Osmolality Calculated 295 mOsm/kg (285-295); Phosphorus 4.4 mg/dL (2.5-4.5); Potassium 4.3 mmol/L (3.5-5.1); Sodium 141 mmol/L (136-145); Total Bilirubin 0.3 mg/dL (0.15-1.2)
[2023-08-20 06:26] LABS: Aspartate Amino Transferase 79 U/L (0-40)
[2023-08-20 06:34] LABS: Chol HDL Ratio 6.04 mg/dL (1.0-5.00); Cholesterol 145 mg/dL (0-200); HDL Cholesterol 24 mg/dL (60-100); LDL Cholesterol Calculated 86 mg/dL (50-129); LDL HDL Ratio 3.58 RATIO (0.00-3.22); Triglycerides 177 mg/dL (0-150)
[2023-08-20 07:06] VITALS: BP 137/86; PULSE 59; RESP 16; TEMP 36.6; O2SAT 97
[2023-08-20] MEDS: pantoprazole DR 40 mg Tablet PO (08:04)
[2023-08-20 09:57] LABS: C.Diff PCR (Lab) NEGATIVE (Negative)
[2023-08-20 11:39] VITALS: BP 135/87; PULSE 54; RESP 17; TEMP 36.6; O2SAT 96
[2023-08-20] MEDS: cefTRIAXone 2,000 MG in sodium chloride 0.9% (plus) 50 ML 100 MG IV (12:06)
[2023-08-20] MEDS: SUMAtriptan 25 mg Tablet PO (12:33)
--- NOTE | 2023-08-20 13:02 | P.DS_ITS ---
Discharge Providers Date of Admission: 08/18/23 00:20 Date of Discharge: August 20, 2023 Attending Provider at Admission: Lazara Badillo MD Attending Provider at Discharge: Mily Mcrae MD Primary Care Provider: Brett Whiting Diagnoses at Discharge Discharge Diagnosis (1) Acute kidney injury: Status: Acute (2) Hyponatremia: Status: Acute (3) Sepsis: Status: Acute Qualifiers: Acute renal failure type: with acute tubular necrosis Sepsis acute organ dysfunction status: with acute organ dysfunction Sepsis type: sepsis due to unspecified organism Severe sepsis acute organ dysfunction type: acute renal failure Severe sepsis shock status: without septic shock Qualified Code(s): A41.9 - Sepsis, unspecified organism; R65.20 - Severe sepsis without septic shock; N17.0 - Acute kidney failure with tubular necrosis (4) Transaminitis: Status: Acute (5) Dehydration: Status: Acute Reason for Visit Reason for Visit: n/v/d , headache, chills, fever Hospital Course Hospital Course Mr. Hedrick is a 37yo man w/ no medical condition except a remote history of a migraine type headache as a child, who presented to the ED on 08/17/2023 with fever chills, myalgias, diarrhea, sore throat, and multiple episodes of emesis daily since 08/13/2023. In the ED, his Tmax was 99.2 F, but he was tachycardic to 105bpm. He had a wbc of 12.4, as well as Hyponatremia of 128, a Cr of 3.0 (baseline 1.0 on 08/12/2018), and transaminitis. His UA was concerning for UTI. His CXR showed no acute abnormalities. A CT abd/pelvis w/o contrast was done that was concerning for bilateral acute pyelonephritis. There was nonspecific heterogeneity of the hepatic parenchyma, so a RUQ US was recommended. On admission, he was started on Ceftriaxone. His BCx, UCx, Respiratory viral panel including COVID-19, Acute hepatitis panel, Gonorrhea/Chlamydia studies, and CMV serologies were negative. His EBV IgG serology was positive but IgM was negative. The RUQ was done and it showed mild hepatic steatosis. His stool cx pcr was pending at the time of discharged. He was managed w/ Ceftriaxone and IVF while hospitalized. And while hospitalized, his renal function improved, and his labs improved overall. Although his stool culture was pending, given his clinical improvement, he was discharged, and was informed that if his stool cultures had a positive result, he would be contacted and given the instructions on his next steps. While hospitalized, the patient also continued to complain of headaches, which she stated worsened when he developed his symptoms. He states that the sumatriptan administered subcu and given orally while he was hospitalized, he lped the headaches. He was discharged with a 30-day prescription of sumatriptan, and encouraged to follow-up with his PCP if he continues to have headaches for further evaluation and possible referral if deemed appropriate. #Severe Sepsis #Complicated UTI #possible Acute b/l pyelonephritis. #ASHWINI with Acute Tubular necrosis (ATN): #Dehydration #Hypovolemic Hyponatremia #Transaminitis: #Mild Hepatic steatosis #Headache w/ Possible Migraine, Hx of Migraine type headache as a child. Physical Exam Const: GENERAL APPEARANCE: cooperative, comfortable and well kempt ORIENTATION/CONSCIOUSNESS: Yes awake, Yes oriented to person, Yes oriented to place and Yes oriented to time HENMT: COMMON NORMALS: normocephalic, atraumatic, external ears normal and Normal external nose present HEAD & SCALP: normocephalic and atraumatic NOSE: Normal external nose present EXTERNAL EAR: Yes external ears normal MOUTH: Normal oral and palatal mucosa present THROAT: posterior oropharynx normal Eye: COMMON NORMALS: Equal, round and reactive pupils present PUPIL: Yes Equal, round and reactive pupils present EOM: No EOM abnormal Neck/C-Spine: COMMON NORMALS: Thyroid normal GENERAL: Yes normal visual inspection and Yes trachea midline THYROID: Thyroid normal CAROTIDS: No bruit Lymph: LYMPHATIC: no lymphadenopathy noted Resp: OTHER: CTAB w/ no w/r/r Cardio: OTHER: RRR, no m/r/g/clicks GI: OTHER: BS+, non distended, no rebound, rigidity, or organomegaly Extremity: GENERAL: No clubbing, No cyanosis and No edema Neuro: SENSORIUM/ORIENTATION: Yes oriented to person, Yes oriented to place and Yes oriented to time CRANIAL NERVES: Yes CN normal except as noted SPEECH: speech normal SENSORY EXAM: No sensory level loss detected MOTOR EXAM: 5/5 motor strength present throughout Psych: COMMON NORMALS: Normal thought process present and speech normal APPEARANCE: Yes grossly normal and Yes well kempt ATTITUDE: Yes calm and Yes engaged ACTIVITY/MOTOR BEHAVIOR: Yes appropriate eye contact SPEECH: Yes normal speech MOOD & AFFECT: Yes euthymic mood THOUGHT PROCESS: Normal thought process present THOUGHT CONTENT: Yes Normal thought content present ATTENTION/CONCENTRATION: Yes attention grossly intact MEMORY/COGNITION: Yes memory grossly intact Skin: COMMON NORMALS: no rashes or lesions noted GENERAL SKIN EXAM: no rashes or lesions noted Discharge Data Studies Completed and Pending Completed Studies During Hospitalization Category Date Time Status CT abdomen pelvis wo con 08183 Stat Cat Scan 08/17/23 22:16 Completed CXRP [XR chest 1V portable [id number]] Stat Exams 08/17/23 22:16 Completed US abdomen limited 37993 Routine Ultrasound 08/18/23 16:20 Completed Pending at discharge Category Date Time Status Blood Culture Routine Lab 08/17/23 23:36 Results CBC Auto Diff [Complete Blood Count w/Auto] AM LABS Lab 08/21/23 04:00 Ordered CBC Auto Diff [Complete Blood Count w/Auto] AM LABS Lab 08/22/23 04:00 Ordered CMP [Comprehensive Metabolic Panel] AM LABS Lab 08/21/23 04:00 Ordered CMP [Comprehensive Metabolic Panel] AM LABS Lab 08/22/23 04:00 Ordered Enteric Bacteria [Salmonella / Shigella / Campy] Lab 08/18/23 02:35 Received Routine Magnesium AM LABS Lab 08/21/23 04:00 Ordered Phosphorus AM LABS Lab 08/21/23 04:00 Ordered Radiology Impressions Abdomen/Pelvis CT 08/17/23 22:16 IMPRESSION: 1. Bilateral perinephric changes suggesting perinephric edema and trace fluid extending along the retroperitoneal reflection. While bilateral pyelonephritis can have this appearance, these findings are likely reported acute renal failure. 2. Nonspecific small pelvic free fluid, possibly related to renal failure. 3. Nonspecific heterogeneity of the hepatic parenchyma. Recommend further evaluation with right upper quadrant ultrasound. 4. Mild splenomegaly. Chest X-Ray 08/17/23 22:16 IMPRESSION: No acute findings. Laboratory Results WBC 3.94 10^3/uL (3.29-11.43) 08/20/23 05:36 RBC 4.45 10^6/uL (3.85-5.65) 08/20/23 05:36 Hgb 13.00 g/dL (11.27-16.99) 08/20/23 05:36 Hct 38.7 % (37-53) 08/20/23 05:36 MCV 87.0 fl (82-101) 08/20/23 05:36 MCH 29.2 pg (27-33) 08/20/23 05:36 MCHC 33.6 g/dL (30-55) 08/20/23 05:36 RDW 13.0 % (12.1-15.1) 08/20/23 05:36 Plt Count 226 10^3/cmm (157-399) 08/20/23 05:36 MPV 9.1 fL (7.4-10.4) 08/20/23 05:36 Neut % (Auto) 45.9 % 08/20/23 05:36 Lymph % (Auto) 38.6 % 08/20/23 05:36 [place] % (Auto) 11.4 % 08/20/23 05:36 Eos % (Auto) 1.0 % 08/20/23 05:36 Baso % (Auto) 0.8 % 08/20/23 05:36 Neut # (Auto) 1.81 10^3/uL (1.8-7.7) 08/20/23 05:36 Lymph # (Auto) 1.5 10^3/uL (0.8-4.8) 08/20/23 05:36 [place] # (Auto) 0.5 10^3/uL (0.2-0.9) 08/20/23 05:36 Eos # (Auto) 0.0 10^3/uL (0.0-0.8) 08/20/23 05:36 Baso # (Auto) 0.0 10^3/uL (0.0-0.1) 08/20/23 05:36 Nucleated RBC % (auto) 0 % 08/20/23 05:36 Nucleated RBCs # 0.0 /100WBC 08/20/23 05:36 Sodium 141 mmol/L (136-145) 08/20/23 05:36 Potassium 4.3 mmol/L (3.5-5.1) 08/20/23 05:36 Chloride 106 mmol/L (98-107) 08/20/23 05:36 Carbon Dioxide 25 mmol/L (22-29) 08/20/23 05:36 Anion Gap 14.3 (5-19) 08/20/23 05:36 BUN 21 mg/dL (6-20) H 08/20/23 05:36 Creatinine 1.2 mg/dL (0.7-1.2) 08/20/23 05:36 GFR Calculation 67.8 mL/min (90-130) L 08/20/23 05:36 Glucose 98 mg/dL (65-115) 08/20/23 05:36 POC Glucose 136 mg/dL (70-110) H 08/18/23 00:38 Calculated Osmolality 295 mOsm/kg (285-295) 08/20/23 05:36 Lactic Acid 1.0 mmol/L (0.5-2.2) 08/17/23 21:10 Calcium 8.4 mg/dL (8.5-10.5) L 08/20/23 05:36 Phosphorus 4.4 mg/dL (2.5-4.5) 08/20/23 05:36 Magnesium 1.7 mg/dL (1.7-2.3) 08/20/23 05:36 Total Bilirubin 0.3 mg/dL (0.15-1.2) 08/20/23 05:36 AST 79 U/L (0-40) H 08/20/23 05:36 ALT 106 U/L (0-41) H 08/20/23 05:36 Alkaline Phosphatase 109 U/L (40-130) 08/20/23 05:36 Creatine Kinase 100 U/L (39-308) 08/18/23 05:25 Total Protein 6.0 g/dL (6.6-8.7) L 08/20/23 05:36 Albumin 3.1 g/dL (3.5-5.2) L 08/20/23 05:36 Globulin 2.9 g/dL (1.3-4.6) 08/20/23 05:36 Triglycerides 177 mg/dL (0-150) H 08/20/23 05:36 Cholesterol 145 mg/dL (0-200) 08/20/23 05:36 LDL Cholesterol, Calc 86 mg/dL (50-129) 08/20/23 05:36 HDL Cholesterol 24 mg/dL (60-100) L 08/20/23 05:36 LDL/HDL Ratio 3.58 RATIO (0.00-3.22) H 08/20/23 05:36 Cholesterol/HDL Ratio 6.04 mg/dL (1.0-5.00) H 08/20/23 05:36 Lipase 21 U/L (13-60) 08/17/23 21:10 Urine Color Yellow (Yellow) 08/17/23 22:35 Urine Appearance Sl hazy (CLEAR) A 08/17/23 22:35 Urine pH 5 (5-7) 08/17/23 22:35 Ur Specific [place] 1.015 (1.005-1.030) 08/17/23 22:35 Urine Protein 1+ (Negative) H 08/17/23 22:35 Urine Glucose (UA) Norm (Normal) 08/17/23 22:35 Urine Ketones 1+ (Negative) H 08/17/23 22:35 Urine Blood 2+ (Negative) H 08/17/23 22:35 Urine Nitrate Negative (Negative) 08/17/23 22:35 Urine Bilirubin 1+ (Negative) H 08/17/23 22:35 Urine Urobilinogen 4 mg/dL (Negative) H 08/17/23 22:35 Ur Leukocyte Esterase Trace (Negative) H 08/17/23 22:35 Urine RBC 0-4 /hpf (0-2) H 08/17/23 22:35 Urine WBC 25-40 /hpf (0-5) H 08/17/23 22:35 Ur Squamous Epith Cells 0-4 /hpf (0-5) H 08/17/23 22:35 Amorphous Sediment Trace /hpf 08/17/23 22:35 Urine Bacteria 2+ /hpf (NONE) H 08/17/23 22:35 Hyaline Casts 0-4 /lpf H 08/17/23 22:35 Coarse Granular Casts 5-10 /lpf H 08/17/23 22:35 Urine Opiates Screen Negative ng/mL (Negative) 08/17/23 22:35 Ur Barbiturates Screen Negative ng/mL (Negative) 08/17/23 22:35 Ur Phencyclidine Scrn Negative ng/mL (Negative) 08/17/23 22:35 Ur Amphetamines Screen Negative ng/mL (Negative) 08/17/23 22:35 U Benzodiazepines Scrn Negative ng/mL (Negative) 08/17/23 22:35 Urine Cocaine Screen Negative ng/mL (Negative) 08/17/23 22:35 U Marijuana (THC) Screen Negative ng/mL (Negative) 08/17/23 22:35 Ethyl Alcohol < 10 mg/dL (0-10) 08/17/23 21:10 Adenovirus (PCR) Not detected (NOT DETECT) 08/18/23 02:47 C. pneumoniae DNA (PCR) Not detected (NOT DETECT) 08/18/23 02:47 C.trachomatis RNA (TMA) Not detected (NOT DETECTED) 08/17/23 22:35 Chlamydia/GC Comment See note 08/17/23 22:35 C. difficile (PCR) Negative (Negative) 08/20/23 07:00 Coronavirus 229E (PCR) Not detected (NOT DETECT) 08/18/23 02:47 CMV IgG Ab <0.60 U/mL 08/18/23 05:25 CMV IgM Ab <30.00 AU/mL 08/18/23 05:25 EBV IgG Ab 188.00 U/mL H 08/18/23 05:25 EBV IgM Ab <36.00 U/mL 08/18/23 05:25 EBV Nuclear Antigen 94.90 U/mL H 08/18/23 05:25 EBV Interpretation See note 08/18/23 05:25 Hepatitis A IgM Ab Non-reactive (Nonreactive) 08/18/23 05:25 Hep Bs Antigen Non-reactive (Nonreactive) 08/18/23 05:25 Hep Bs Antibody 7.5 (11.5-1000) L 08/18/23 05:25 Hep B Core Total Ab Non-reactive (Nonreactive) 08/18/23 05:25 Hepatitis C Antibody Non-reactive (Nonreactive) 08/18/23 05:25 Monoscreen Negative (Negative) 08/18/23 05:25 Human Metapneumovir PCR Not detected (NOT DETECT) 08/18/23 02:47 Influenza A (H1) PCR Not detected (NOT DETECT) 08/18/23 02:47 Influ A (H1/09) PCR Not detected (NOT DETECT) 08/18/23 02:47 Influenza A (H3) PCR Not detected (NOT DETECT) 08/18/23 02:47 Influenza Type A Ag negative (Negative) 08/17/23 21:10 Influenza Type A (PCR) Not detected (NOT DETECT) 08/18/23 02:47 Influenza Type B Ag negative (Negative) 08/17/23 21:10 Influenza Type B (PCR) Not detected (NOT DETECT) 08/18/23 02:47 M. pneumoniae (PCR) Not detected (NOT DETECT) 08/18/23 02:47 N.gonorrhoeae RNA (TMA) Not detected (NOT DETECTED) 08/17/23 22:35 Parainfluenza 1 (PCR) Not detected (NOT DETECT) 08/18/23 02:47 Parainfluenza 2 (PCR) Not detected (NOT DETECT) 08/18/23 02:47 Parainfluenza 3 (PCR) Not detected (NOT DETECT) 08/18/23 02:47 Parainfluenza 4 (PCR) Not detected (NOT DETECT) 08/18/23 02:47 RSV Type A (PCR) Not detected (NOT DETECT) 08/18/23 02:47 RSV Type B (PCR) Not detected (NOT DETECT) 08/18/23 02:47 Entero/Rhino (PCR) Not detected (NOT DETECT) 08/18/23 02:47 SARS-CoV-2 (PCR) Not detected (NOT DETECT) 08/18/23 02:47 SARS-CoV-2 Ag (Rapid) negative (Negative) 08/17/23 21:10 Vitals Last Vital Signs Temp 97.8 F 08/20/23 11:39 Pulse 54 L 08/20/23 11:39 Resp 17 08/20/23 11:39 BP 135/87 08/20/23 11:39 Pulse Ox 96 08/20/23 11:39 O2 Del Method Room Air 08/20/23 11:39 Discharge Plan Discharge Patient Disposition: Home Condition: Stable Prescriptions: New sumatriptan succinate 25 mg Tablet 50 mg PO DAILY PRN (Reason: Migraine Headache) 30 Days Qty: 60 0RF ciprofloxacin HCl 500 mg Tablet 500 mg PO BID@0900,2100 7 Days Qty: 14 0RF Rx Instructions: start taking this medication on 08/21/2023 Continued multivitamin Tablet 2 tab PO BEDTIME Discontinued amoxicillin-pot clavulanate 875-125 mg tablet 1 tab PO BID 7 Days Qty: 14 0RF Rx Instructions: for 7 days (rx filled 08/17/23) Discharge Orders: Discharge Order (Routine); Ordered 08/20/23 Ordered By: Mily Mcrae Referrals: Brett Whiting [Primary Care Provider] - 08/24/23 1:00 pm (Appointment will be with Kyleigh Anna due to Dr Whiting being booked out. ) Discharge Diet: Advance as tolerated Discharge Activity: Resume usual activity and Increase activity as tolerated Patient Instructions: Ciprofloxacin (By mouth), Sumatriptan (By mouth) (Imitrex), Sepsis (GEN), Opioid Safety, Pyelonephritis Discharge Attestations Time Spent in Discharge Care*: greater than 30 min Quality Metrics Clinical Quality Measures [ No reported AMI, CVA or VTE this stay] Coding Level of Care Code 33548 Diagnoses Acute kidney injury N17.9 Hyponatremia E87.1 Sepsis with acute renal failure and tubular necrosis without septic shock, due to unspecified organism A41.9; R65.20; N17.0 Acute renal failure type: with acute tubular necrosis Sepsis acute organ dysfunction status: with acute organ dysfunction Sepsis type: sepsis due to unspecified organism Severe sepsis acute organ dysfunction type: acute renal failure Severe sepsis shock status: without septic shock Transaminitis R74.01 Dehydration E86.0
--- NOTE | 2023-08-20 13:16 | PC.NURSE ---
Discharge pending meds to beds and to get here to transport home.
== END 2023-08-20 13:47 | disposition home or self-care (01) | DRG 871 ==
LOC: ER 23:50 → MEDSURG 08-18 04:07
PROVIDERS: Admitting Provider Student in an Organized Health Care Education/Training Program; Emergency Provider Nurse Practitioner; PCP Family Medicine; Visit Provider Internal Medicine
DX: A41.9 Sepsis, unspecified organism (principal); N17.0 Acute kidney failure with tubular necrosis; E87.1 Hypo-osmolality and hyponatremia; N39.0 Urinary tract infection, site not specified; R65.20 Severe sepsis without septic shock; E86.0 Dehydration; K76.0 Fatty (change of) liver, not elsewhere classified; Z11.52 Encounter for screening for COVID-19
CPT/HCPCS: 36415; 36416; 71045; 74176; 76705; 80053; 80061; 80306; 80307; 81001; 82550; 82962; 83605; 83690; 83735; 84100; 85025; 86308; 86664; 86665; 86705; 86706; 86709; 86803; 87040; 87045; 87086; 87340; 87426; 87427; 87449; 87486; 87491; 87493; 87581; 87591; 87633; 87804; 96365; 96372; 96375; 99285; J0696; J1200; J1885; J2270; J2765; J3030; J7030